=== PATIENT | male | born 1975 | race Caucasian/White ===

== ENCOUNTER → 2017-05-02 | Outpatient (CLI) | payer MEDICAID ==
[~2017-05-02] MED LIST: FLEXERIL10 MG PO; GABAPENTIN300 MG PO; HYDROCODONE-APA1 TA1 PO; INDOCIN25 MG PO; INDOMETHACIN25 MG PO; LISINOPRIL10 MG PO; LORTAB 10/3251 TAB PO
--- NOTE | 2017-05-02 14:13 | RADIOLOGY REPORT PS360 ---
US [id number] HISTORY: Hypertension HTN ORDERING PHYSICIAN: Neville Smith MD PATIENT AGE: 41 years COMPARISON: None FINDINGS: RIGHT KIDNEY:Right kidney measures 11 x 6 x 6 cm. No hydronephrosis or perinephric fluid collection or mass is evident. There is some cortical scarring along the lower pole the right kidney. LEFT KIDNEY:Left kidney measures 11 x 5 x 5 cm and has an unremarkable appearance. No cortical thinning or hydronephrosis. OTHER FINDINGS: No other pertinent findings IMPRESSION: Mild right-sided cortical thinning otherwise negative bilateral renal ultrasound
--- NOTE | 2017-05-03 17:16 | RADIOLOGY REPORT PS360 ---
PROCEDURE: 2-D M-mode and color Doppler study INDICATIONS FOR THE TEST: Chest pain COPD Heart Murmur Tobacco Smoking+ Palpitations Fatigue Syncope Edema Hypertension+Diabetes Mellitus Rheumatic Fever SOB [place] Obesity Hyperlipidemia Family History HD Additional History PATIENT INFORMATION HEIGHT: 68 WEIGHT:225 GENDER: Male B/P:106/74 2-D/M-MODE INTERPRETATION: 2-D MEASUREMENTS OBSERVED VALUES IN CMS Right Ventricular Dimension (RVDd) 2.6 Interventricular Septum (Thickness)(IVsd) 1.2 Left Ventricular Internal Dimensions(LVIDd) 5.3 Left Ventricular Posterior Wall (Thickness)(LVPWd) 0.5 Aortic Root 3.2 Aortic Cusp Separation 2.3 Left Atrial Dimensions (LAD) 4.1 2D 1. Left atrium is mildly enlarged, left ventricle is normal size, there is mild concentric left ventricular hypertrophy, visually estimated ejection fraction 55% with no signal wall motion abnormality. 2. The right atrium and right ventricle are normal size and contractility. 3. The aortic valve is minimally thickened and fibrosed. 4. The mitral and tricuspid valve restructure normal. 5. The pulmonic valve is poorly visualized. 6. No significant pericardial effusion noted. DOPPLER INTERROGATION: Doppler interrogation of the aortic, mitral and tricuspid valvular presence of mild mitral and tricuspid regurgitation, tricuspid regurgitant jet velocity is insufficient for calculation of the right ventricular systolic pressure, grade 1 diastolic dysfunction seen with tissue Doppler evidence of raised left atrial pressure. CONCLUSION: 1. Mildly enlarged left atrium, normal left ventricular size, mild concentric left ventricular hypertrophy, visually estimated ejection fraction 55% with no obvious regional wall motion abnormality, grade 1 diastolic dysfunction seen with tissue Doppler evidence of raised left atrial pressure. 2. Mild mitral and tricuspid regurgitation. 3. No significant pericardial effusion noted.
== END ==
LOC: RAD 04-27 10:30 → RT 04-27 11:00
DX: I10 Essential (primary) hypertension (principal)